=== PATIENT | male | born 2000 | race Hispanic/Latino ===

== ENCOUNTER 2021-12-24 04:23 | Emergency (ER) | payer OTHER ==
[~2021-12-24] VITALS: Ht 177.8 cm; Wt 75.0 kg
[2021-12-24] MEDS ORDERED: IBUPROFEN 800 MG TAB PO ONE (10:40)
[2021-12-24 11:18] VITALS: BP 127/75
== END 2021-12-24 11:39 | disposition home or self-care (01) ==
LOC: M ED 04:23
DX: Z04.1 Encounter for examination and observation following transport accident (principal); R51.9 Headache, unspecified; V47.5XXA Car driver injured in collision with fixed or stationary object in traffic accident, initial encounter; Y92.410 Unspecified street and highway as the place of occurrence of the external cause; F17.290 Nicotine dependence, other tobacco product, uncomplicated; Z88.6 Allergy status to analgesic agent

== ENCOUNTER → 2023-02-13 | Outpatient (CLI) | payer OTHER | LOC: M SOG 08:55 | PROVIDERS: ATTEND Orthopaedic Surgery | DX: M25.512 Pain in left shoulder (principal) ==

== ENCOUNTER → 2023-03-17 | Outpatient (REF) | payer OTHER | LOC: M LAB REF 08:30 | PROVIDERS: ATTEND Surgery | DX: L72.3 Sebaceous cyst (principal) ==